=== PATIENT | female | born 1955 | race Caucasian/White ===

== ENCOUNTER 2020-05-22 12:22 | Emergency (ER) | payer MEDICARE, BC ==
[~2020-05-22] VITALS: Ht 162.6 cm; Wt 126.5 kg
[2020-05-22] MEDS ORDERED: normal saline 1000ML IV soln IVB ONE (13:10)
[2020-05-22] MEDS ORDERED: morphine 4 MG/ML inj SYRINge IV ONE (13:10)
[2020-05-22] MEDS ORDERED: ketorolac tromethamine 15mg/ml inj. IV ONE (13:10)
[2020-05-22] MEDS ORDERED: ondansetron/PF 4mg/2ml inj IV ONE (13:10)
[2020-05-22 13:30] LABS: BASOPHILS % (AUTO) 0.4 % (0-1); EOSINOPHILS % (AUTO) 0.4 % (0-6); HEMATOCRIT 42.6 % (35.0-45.0); LYMPHOCYTES % (AUTO) 12.4 % (21-51); MEAN CORPUSCULAR HEMOGLOBIN 31.8 PG (27.0-31.0); MEAN CORPUSCULAR HGB CONC 32.9 g/dL (33.0-36.5); MEAN CORPUSCULAR VOLUME 96.5 FL (78-98); MEAN PLATELET VOLUME 8.6 FL (7.4-10.4); MONOCYTES # (AUTO) 0.5 X10'3 (0-0.9); NEUTROPHILS # (AUTO) 6.8 X10'3 (1.8-7.7); NEUTROPHILS % (AUTO) 80.8 % (42-75); PLATELET COUNT 211 X10'3 (140-440); RED BLOOD COUNT 4.42 X10'6 (4.20-5.60); RED CELL DISTRIBUTION WIDTH 13.3 % (11.5-14.5); WHITE BLOOD COUNT 8.4 X10'3 (4.5-11.0)
[2020-05-22 13:44] LABS: ALANINE AMINOTRANSFERASE 19 U/L (12-78); ALBUMIN 3.4 G/DL (3.4-5.0); ALBUMIN/GLOBULIN RATIO 0.9 (1.1-1.5); ALKALINE PHOSPHATASE 134 IU/L (46-116); ANION GAP 8 (8-16); ASPARTATE AMINO TRANSFERASE 17 U/L (10-37); BILIRUBIN,TOTAL 0.5 MG/DL (0.1-1.0); BLOOD UREA NITROGEN 10 MG/DL (7-18); BUN/CREATININE RATIO 9.3 (6.6-38.0); CALCIUM 9.3 MG/DL (8.5-10.1); CHLORIDE 108 MMOL/L (99-107); CREATININE 1.07 MG/DL (0.40-0.90); GLUCOSE 119 MG/DL (70-104); LIPASE 106 U/L (73-393); POTASSIUM 4.2 MMOL/L (3.5-5.1); SODIUM 144 MMOL/L (135-145); TOTAL CARBON DIOXIDE 27.8 MMOL/L (24-32); TOTAL PROTEIN 7.2 G/DL (6.4-8.2); eGFR 51 ML/MIN
[2020-05-22 14:41] LABS: CLARITY,URINE CLOUDY (Clear); COLOR,URINE BROWN (Yellow); GLUCOSE, URINE NEGATIVE (Neg); KETONES,URINE NEGATIVE (Neg); LEUKOCYTE ESTERASE ,URINE NEGATIVE (Neg); NITRITES, URINE NEGATIVE (Neg); OCCULT BLOOD,URINE LARGE (Neg); PH,URINE 5.5 (4.8-8.0); PROTEIN,URINE 100 mg/dl (Neg); UROBILINOGEN,URINE 0.2 E.U/dL (0.2-1.0)
[2020-05-22 14:43] LABS: UA COLLECTION TYPE CLN CATCH MIDSTREAM
[2020-05-22 14:48] LABS: RBC,URINE TNTC /HPF (0-2)
[2020-05-22 14:49] LABS: BACTERIA,URINE 2+ /HPF (Neg); SQUAMOUS EPITHELIAL CELL,UR FEW /LPF (FEW)
[2020-05-22] MEDS ORDERED: HYDR-4353 PO (15:12)
[2020-05-22] MEDS ORDERED: ONDA4TAB6 PO (15:12)
[2020-05-22] MEDS ORDERED: ketorolac trometh. 30mg/ml inj. IM ONE (15:30)
[2020-05-22 15:36] VITALS: BP 179/87
== END 2020-05-22 15:35 | disposition home or self-care (01) ==
LOC: ER 12:23
DX: N20.0 Calculus of kidney (principal); R10.31 Right lower quadrant pain; R10.11 Right upper quadrant pain; R11.0 Nausea; J45.909 Unspecified asthma, uncomplicated; E11.9 Type 2 diabetes mellitus without complications; Z90.89 Acquired absence of other organs; Z88.2 Allergy status to sulfonamides; Z79.899 Other long term (current) drug therapy
CPT/HCPCS: 36415; 74176; 80053; 81001; 83690; 85025; 87088; 96361; 96372; 96374; 96375; 99284; J1885; J2270; J2405; J7030; 99285

== ENCOUNTER 2022-07-27 08:41 | Inpatient (IN) | payer MEDICARE, BC ==
[~2022-07-27] VITALS: Ht 162.6 cm; Wt 130.2 kg
[2022-07-27] VITALS (9 sets, daily range): BP systolic 115–172; BP diastolic 54–87
[~2022-07-27 08:41] MED LIST: ONDA4TAB6 PO
[2022-07-27 09:55] LABS: BASOPHILS % (AUTO) 0.1 % (0-1); EOSINOPHILS % (AUTO) 0.1 % (0-6); HEMOGLOBIN 13.9 g/dl (12.0-16.0); LYMPHOCYTES # (AUTO) 0.8 X10'3 (1.1-4.8); LYMPHOCYTES % (AUTO) 7.7 % (21-51); MEAN CORPUSCULAR HEMOGLOBIN 31.8 PG (27.0-31.0); MEAN CORPUSCULAR VOLUME 96.2 FL (78-98); MEAN PLATELET VOLUME 8.6 FL (7.4-10.4); MONOCYTES # (AUTO) 0.4 X10'3 (0-0.9); MONOCYTES % (AUTO) 4.1 % (2-12); NEUTROPHILS # (AUTO) 8.7 X10'3 (1.8-7.7); PLATELET COUNT 221 X10'3 (140-440); RED BLOOD COUNT 4.37 X10'6 (4.20-5.60); WHITE BLOOD COUNT 9.8 X10'3 (4.5-11.0)
[2022-07-27 10:00] LABS: CLARITY,URINE CLEAR (Clear); COLOR,URINE YELLOW (Yellow); GLUCOSE, URINE NEGATIVE (Neg); KETONES,URINE TRACE mg/dl (Neg); LEUKOCYTE ESTERASE ,URINE NEGATIVE (Neg); NITRITES, URINE NEGATIVE (Neg); OCCULT BLOOD,URINE SMALL (Neg); PROTEIN,URINE NEGATIVE (Neg); UROBILINOGEN,URINE 0.2 E.U/dL (0.2-1.0)
[2022-07-27 10:05] LABS: ALANINE AMINOTRANSFERASE 20 U/L (12-78); ALBUMIN 3.7 G/DL (3.4-5.0); ALKALINE PHOSPHATASE 142 IU/L (46-116); ASPARTATE AMINO TRANSFERASE 15 U/L (10-37); BILIRUBIN,TOTAL 0.3 MG/DL (0.1-1.0); BLOOD UREA NITROGEN 14 MG/DL (7-18); BUN/CREATININE RATIO 14.4 (6.6-38.0); CALCIUM 9.4 MG/DL (8.5-10.1); CHLORIDE 107 MMOL/L (99-107); CREATININE 0.97 MG/DL (0.40-0.90); GLUCOSE 165 MG/DL (70-104); LIPASE 89 U/L (73-393); POTASSIUM 3.6 MMOL/L (3.5-5.1); TOTAL CARBON DIOXIDE 27.9 MMOL/L (24-32); TOTAL PROTEIN 7.4 G/DL (6.4-8.2); eGFR 57 ML/MIN
[2022-07-27 10:07] LABS: UA COLLECTION TYPE CLN CATCH MIDSTREAM
[2022-07-27 10:13] LABS: BACTERIA,URINE 3+ /HPF (Neg); MUCUS STRANDS MODERATE /LPF (Neg); SQUAMOUS EPITHELIAL CELL,UR MODERATE /LPF (FEW)
[2022-07-27 10:29] LABS: ANION GAP 10 (8-16); SODIUM 145 MMOL/L (135-145)
[2022-07-27] MEDS ORDERED: HYDROcodone/acetaminophen 5mg/325mg tablet PO ONE (14:00)
[2022-07-27] MEDS ORDERED: HYDR-3965 PO ×2 (14:10)
[2022-07-27] MEDS ORDERED: CEPH500C81 PO ×2 (14:10)
[2022-07-27] MEDS ORDERED: cephalexin 250mg capsule PO ONE (14:10)
[2022-07-27] MEDS ORDERED: morphine 4 MG/ML inj SYRINge IV ONE (15:45)
[2022-07-27] MEDS ORDERED: CefTRIAXone/D5W-Rocephin 1gm 50 ML IV ONE (16:30)
[2022-07-27] MEDS: ringers solution, lacted 1,000 ML IV SCH (17:06)
[2022-07-27] MEDS ORDERED: HYDROcodone/acetaminophen 5mg/325mg tablet PO PRN (17:20)
[2022-07-27] MEDS ORDERED: glucagon, human recombinant 1mg kit SUBCUT PRN (17:20)
[2022-07-27] MEDS ORDERED: morphine 2 MG/ML inj. syringe IV PRN ×2 (17:20→21:25)
[2022-07-27] MEDS ORDERED: dextrose 50%-water 50ml dispensing syringe IV PRN ×2 (17:20)
[2022-07-27] MEDS ORDERED: insulin Lispro (HumaLOG) vial - multi-dose SQ SCH (17:20)
[2022-07-27] MEDS ORDERED: mag hydrox/Alum hydrox/simeth 30ml oral suspension PO PRN (17:20)
[2022-07-27] MEDS ORDERED: magnesium hydroxide 30ml (MOM) UD suspension PO PRN (17:20)
[2022-07-27] MEDS ORDERED: ondansetron/PF 4mg/2ml inj IV PRN ×2 (17:20→21:25)
[2022-07-27] MEDS ORDERED: acetaminophen 325mg tablet PO PRN ×2 (17:20)
[2022-07-27] MEDS ORDERED: metoclopramide 5 mg/ml inj IV PRN (17:20)
[2022-07-27] MEDS ORDERED: MESSAGE TO PHARMACY PO ONE (17:20)
[2022-07-27] MEDS ORDERED: DEXTROSE 15 GM of carb/4 tabs (each vial/BOTTLE has 4 tablets) PO PRN ×2 (17:20)
[2022-07-27] MEDS ORDERED: TOPI25TA49 PO (17:56)
[2022-07-27] MEDS ORDERED: LEVO137T24 PO (17:56)
[2022-07-27] MEDS ORDERED: ALBU17AE26 PO (17:56)
[2022-07-27] MEDS ORDERED: SEMA1PEN3 SQ (17:56)
[2022-07-27] MEDS ORDERED: ROSU5TAB12 PO (17:56)
[2022-07-27] MEDS ORDERED: FLUT16SP26 (17:56)
[2022-07-27] MEDS ORDERED: CHOL10005 PO (17:57)
[2022-07-27] MEDS ORDERED: MULT-1085 PO (17:57)
[2022-07-27 18:11] LABS: HEMOGLOBIN A1C 6.1 % (4.5-6.2)
[2022-07-27] MEDS: docusate sod 100mg capsule PO SCH (20:00)
[2022-07-27] MEDS: morphine 2 MG/ML inj. syringe IV PRN (20:11)
[2022-07-27] MEDS ORDERED: BUPIVAcaine/PF 2.5 mg/ml (0.25%) 30ml vial ONE (20:26)
[2022-07-27] MEDS ORDERED: INDOCYANINE GREEN 25 MG/10 ML VIAL IV ONE (20:26)
[2022-07-27] MEDS ORDERED: sevoflurane 250ml liquid IH ONE (20:44)
[2022-07-27] MEDS ORDERED: rocuronium 10mg/ml inj IV ONE ×2 (20:44→20:47)
[2022-07-27] MEDS ORDERED: fentaNYL /PF 50mcg/ml 5ml ampule ONE (20:47)
[2022-07-27] MEDS ORDERED: midazolam 1 mg/ML 2ml injection ONE (20:47)
[2022-07-27] MEDS ORDERED: propofol inj 20 ML IV ONE (20:47)
--- NOTE | 2022-07-27 20:52 | NUR ---
RECEIVED PATIENT AT 1945 FROM ER. PT TO OR FOR SURGERY AT 2029.
[2022-07-27] MEDS: insulin glargine (Lantus) pen - multi-dose SQ SCH (21:00)
[2022-07-27] MEDS ORDERED: labetalol 20mg/4ml (5mg/ml) syringe IV PRN (21:25)
[2022-07-27] MEDS ORDERED: morphine 4 MG/ML inj SYRINge IV PRN (21:25)
[2022-07-27] MEDS ORDERED: proCHLORperazine 10 MG/2 ml inj IV PRN (21:25)
[2022-07-27] MEDS ORDERED: ringers solution, lacted 1,000 ML IV SCH (21:25)
[2022-07-27] MEDS ORDERED: meperidine/PF 25mg/ml syringe IV PRN ×3 (21:25)
[2022-07-27] MEDS ORDERED: glycopyrrolate 0.2mg/ml inj ONE (22:54)
[2022-07-27] MEDS ORDERED: neostigmine methylsulfate 1 MG/ML 10ml vial ONE (22:54)
--- NOTE | 2022-07-27 23:02 | NUR ---
Received from OR via HOSPITAL BED , accompanied by Anesthesiologist DR GILLIS and report given by Anesthesiolgist. PT PRESENTS WITH 20G LEFT HAND, ABD DRESSING 1 ISLAND DRESSING ADILIA DRAIN WITH TERRA AND 3 BANDAIDS. VSS. Addendum: 07/27/22 at 2312 by Alissa Flores RN, RN Amended: Links added.
--- NOTE | 2022-07-27 23:32 | NUR ---
Report called to receiving nurse KAVITA BILLS. Transferred via HOSPITAL BED TO ROOM 4012B. BED IN LOW LOCKED POSITION, CALL LIGHT IN REACH, VIATLS MACHINE HOOKED UP TO PT WITH CONTINUOUS PULSE OX. Belongings WERE LEFT IN PT ROOM 4012B. Special Issues communicated to receiving nurse. Addendum: 07/27/22 at 2345 by Alissa Flores RN, RN Amended: Links added.
[2022-07-28] VITALS (12 sets, daily range): BP systolic 106–148; BP diastolic 44–67
[2022-07-28] MEDS: normal saline 1000ml 1,000 ML IV SCH ×4 (00:21→17:37)
[2022-07-28] MEDS: piperacillin/tazo 4.5gm/100ml 100 ML IV SCH ×3 (00:21→15:47)
[2022-07-28] MEDS: ringers solution, lacted 1,000 ML IV SCH ×3 (00:22→22:40)
[2022-07-28] MEDS: morphine 2 MG/ML inj. syringe IV PRN ×2 (06:00→15:31)
[2022-07-28 06:37] LABS: BASOPHILS % (AUTO) 0.1 % (0-1); EOSINOPHILS % (AUTO) 0 % (0-6); HEMATOCRIT 39.2 % (35.0-45.0); HEMOGLOBIN 13.1 g/dl (12.0-16.0); LYMPHOCYTES # (AUTO) 0.7 X10'3 (1.1-4.8); LYMPHOCYTES % (AUTO) 4.3 % (21-51); MEAN CORPUSCULAR HEMOGLOBIN 32.2 PG (27.0-31.0); MEAN CORPUSCULAR HGB CONC 33.5 g/dL (33.0-36.5); MEAN CORPUSCULAR VOLUME 96.3 FL (78-98); MONOCYTES # (AUTO) 1.2 X10'3 (0-0.9); MONOCYTES % (AUTO) 7.6 % (2-12); NEUTROPHILS # (AUTO) 14.5 X10'3 (1.8-7.7); PLATELET COUNT 187 X10'3 (140-440); RED BLOOD COUNT 4.07 X10'6 (4.20-5.60); RED CELL DISTRIBUTION WIDTH 13.5 % (11.5-14.5); WHITE BLOOD COUNT 16.5 X10'3 (4.5-11.0)
[2022-07-28 07:04] LABS: ANION GAP 9 (8-16); BLOOD UREA NITROGEN 9 MG/DL (7-18); BUN/CREATININE RATIO 10.7 (6.6-38.0); CHLORIDE 108 MMOL/L (99-107); CREATININE 0.84 MG/DL (0.40-0.90); GLUCOSE 136 MG/DL (70-104); POTASSIUM 3.9 MMOL/L (3.5-5.1); SODIUM 143 MMOL/L (135-145); TOTAL CARBON DIOXIDE 26.4 MMOL/L (24-32)
[2022-07-28 07:05] LABS: ALANINE AMINOTRANSFERASE 25 U/L (12-78); ALBUMIN 2.7 G/DL (3.4-5.0); ALBUMIN/GLOBULIN RATIO 0.8 (1.1-1.5); ALKALINE PHOSPHATASE 99 IU/L (46-116); ASPARTATE AMINO TRANSFERASE 36 U/L (10-37); BILIRUBIN,TOTAL 1.2 MG/DL (0.1-1.0); CALCIUM 8.6 MG/DL (8.5-10.1); TOTAL PROTEIN 5.9 G/DL (6.4-8.2); eGFR 67 ML/MIN
--- NOTE | 2022-07-28 07:19 | NUR ---
Patient in room ORTHO 4012. I have received report from Chacha BILLS and had the opportunity to ask questions and assume patient care.
[2022-07-28] MEDS ORDERED: albuterol 2.5 MG/3 ML nebule NEB PRN (07:55)
[2022-07-28] MEDS: topiramate 25mg tablet PO SCH ×2 (09:50→21:15)
[2022-07-28] MEDS: multivitamins, therapeutics tablet PO SCH (09:50)
[2022-07-28] MEDS: docusate sod 100mg capsule PO SCH ×2 (09:50→21:15)
[2022-07-28] MEDS: levoTHYROXINE 25mcg tablet PO SCH (09:50)
[2022-07-28] MEDS: levoTHYROXINE 112mcg tablet PO SCH (09:56)
--- NOTE | 2022-07-28 10:41 | NUR ---
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
--- NOTE | 2022-07-28 15:45 | NUR ---
medicated for pain 04/26 , sero sang drainage noticed around distal surgical site changed x2.
[2022-07-28] MEDS: HYDROcodone/acetaminophen 10/325mg tab PO PRN ×2 (17:37→21:37)
--- NOTE | 2022-07-28 18:14 | NUR ---
walked outside door x1 with one assist. very painful. medicated with [place]. Resting in bed at time of report
--- NOTE | 2022-07-28 18:16 | NUR ---
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
--- NOTE | 2022-07-28 18:24 | NUR ---
Patient in room RA 358. I have received report from Paulette BILLS and Angelia BILLS and had the opportunity to ask questions and assume patient care.
--- NOTE | 2022-07-28 18:25 | NUR ---
Patient in room RA 358. I have received report from Angelia BILLS and had the opportunity to ask questions and assume patient care.
--- NOTE | 2022-07-28 18:50 | NUR ---
Problems reprioritized. Patient report given, questions answered & plan of care reviewed with Marylu BILLS.
[2022-07-28] MEDS: insulin glargine (Lantus) pen - multi-dose SQ SCH (21:00)
[2022-07-28] MEDS: enoxaparin 40mg/0.4ml syringe SUBCUT SCH (21:23)
[2022-07-29] MEDS: piperacillin/tazo 4.5gm/100ml 100 ML IV SCH ×4 (00:32→23:01)
[2022-07-29] MEDS: HYDROcodone/acetaminophen 10/325mg tab PO PRN ×3 (03:06→20:03)
[2022-07-29] MEDS: normal saline 1000ml 1,000 ML IV SCH ×3 (03:06→23:00)
--- NOTE | 2022-07-29 06:32 | NUR ---
Problems reprioritized. Patient report given, questions answered & plan of care reviewed with Kelli BILLS.
[2022-07-29 06:36] LABS: BASOPHILS % (AUTO) 0.2 % (0-1); EOSINOPHILS # (AUTO) 0.1 X10'3 (0-0.9); EOSINOPHILS % (AUTO) 0.6 % (0-6); HEMATOCRIT 36.6 % (35.0-45.0); HEMOGLOBIN 12.3 g/dl (12.0-16.0); LYMPHOCYTES % (AUTO) 10.4 % (21-51); MEAN CORPUSCULAR HEMOGLOBIN 32.5 PG (27.0-31.0); MEAN CORPUSCULAR HGB CONC 33.6 g/dL (33.0-36.5); MEAN CORPUSCULAR VOLUME 96.7 FL (78-98); MEAN PLATELET VOLUME 8.6 FL (7.4-10.4); MONOCYTES # (AUTO) 0.8 X10'3 (0-0.9); MONOCYTES % (AUTO) 8.2 % (2-12); NEUTROPHILS # (AUTO) 8.1 X10'3 (1.8-7.7); NEUTROPHILS % (AUTO) 80.6 % (42-75); PLATELET COUNT 165 X10'3 (140-440); RED BLOOD COUNT 3.79 X10'6 (4.20-5.60); RED CELL DISTRIBUTION WIDTH 13.6 % (11.5-14.5)
--- NOTE | 2022-07-29 06:53 | NUR ---
Patient in room RA 358. I have received report from SANJU Salter and had the opportunity to ask questions and assume patient care.
[2022-07-29 07:04] LABS: ALANINE AMINOTRANSFERASE 22 U/L (12-78); ALBUMIN 2.4 G/DL (3.4-5.0); ALBUMIN/GLOBULIN RATIO 0.7 (1.1-1.5); ALKALINE PHOSPHATASE 82 IU/L (46-116); ANION GAP 6 (8-16); ASPARTATE AMINO TRANSFERASE 28 U/L (10-37); BILIRUBIN,TOTAL 1.2 MG/DL (0.1-1.0); BLOOD UREA NITROGEN 10 MG/DL (7-18); BUN/CREATININE RATIO 11.5 (6.6-38.0); CALCIUM 8.4 MG/DL (8.5-10.1); CHLORIDE 108 MMOL/L (99-107); CREATININE 0.87 MG/DL (0.40-0.90); GLUCOSE 127 MG/DL (70-104); POTASSIUM 3.3 MMOL/L (3.5-5.1); SODIUM 139 MMOL/L (135-145); TOTAL CARBON DIOXIDE 24.9 MMOL/L (24-32); TOTAL PROTEIN 5.7 G/DL (6.4-8.2); eGFR 65 ML/MIN
[2022-07-29 07:26] VITALS: BP 112/61
[2022-07-29] MEDS ORDERED: POTASSIUM BICARB 20meq eff tab 20 MEQ TABLET.EFF PO ONE (08:35)
[2022-07-29] MEDS: topiramate 25mg tablet PO SCH ×2 (08:40→20:03)
[2022-07-29] MEDS: docusate sod 100mg capsule PO SCH ×2 (08:40→20:03)
[2022-07-29] MEDS: atorvastatin 20mg tablet PO SCH (08:40)
[2022-07-29] MEDS: ringers solution, lacted 1,000 ML IV SCH ×2 (08:40→21:19)
[2022-07-29] MEDS: multivitamins, therapeutics tablet PO SCH (08:40)
[2022-07-29] MEDS: levoTHYROXINE 112mcg tablet PO SCH (08:55)
[2022-07-29] MEDS: levoTHYROXINE 25mcg tablet PO SCH (08:55)
[2022-07-29 11:00] VITALS: BP 134/62
--- NOTE | 2022-07-29 13:18 | NUR ---
Diabetes consult: Pt w/ hx of DM A1c 6.1 per EMR. Well controlled and appropriate. DM ed not indicated at this time. Addendum: 07/29/22 at [address] Amended: Links added.
[2022-07-29 14:46] LABS: HEMOGLOBIN A1C 5.8 % (4.5-6.2)
--- NOTE | 2022-07-29 18:18 | NUR ---
Problems reprioritized. Patient report given, questions answered & plan of care reviewed with SANJU Cordova.
[2022-07-29 19:42] VITALS: BP 115/70
[2022-07-29] MEDS: magnesium hydroxide 30ml (MOM) UD suspension PO SCH (20:03)
[2022-07-29] MEDS: enoxaparin 40mg/0.4ml syringe SUBCUT SCH (20:04)
[2022-07-29] MEDS: insulin glargine (Lantus) pen - multi-dose SQ SCH (21:00)
--- NOTE | 2022-07-29 21:31 | NUR ---
Patient in room RA 358. I have received report from SANJU Pereira and had the opportunity to ask questions and assume patient care.
--- NOTE | 2022-07-29 22:34 | NUR ---
cHARTING BY Paz flores REVIEWED BY michael Mireles rn
[2022-07-30] VITALS: BP 133/73
[2022-07-30] MEDS: ringers solution, lacted 1,000 ML IV SCH ×2 (04:40→14:40)
[2022-07-30] MEDS: normal saline 1000ml 1,000 ML IV SCH ×3 (05:33→19:48)
[2022-07-30] MEDS: HYDROcodone/acetaminophen 10/325mg tab PO PRN ×3 (05:43→22:22)
--- NOTE | 2022-07-30 06:10 | NUR ---
Problems reprioritized. Patient report given, questions answered & plan of care reviewed with SANJU Pereira.
[2022-07-30 06:23] LABS: BASOPHILS % (AUTO) 0.4 % (0-1); EOSINOPHILS # (AUTO) 0.3 X10'3 (0-0.9); EOSINOPHILS % (AUTO) 3.3 % (0-6); HEMATOCRIT 36.9 % (35.0-45.0); HEMOGLOBIN 12.4 g/dl (12.0-16.0); LYMPHOCYTES % (AUTO) 11.5 % (21-51); MEAN CORPUSCULAR HEMOGLOBIN 32.3 PG (27.0-31.0); MEAN CORPUSCULAR HGB CONC 33.5 g/dL (33.0-36.5); MEAN CORPUSCULAR VOLUME 96.4 FL (78-98); MEAN PLATELET VOLUME 8.6 FL (7.4-10.4); MONOCYTES # (AUTO) 0.7 X10'3 (0-0.9); MONOCYTES % (AUTO) 8.3 % (2-12); NEUTROPHILS # (AUTO) 6.8 X10'3 (1.8-7.7); NEUTROPHILS % (AUTO) 76.5 % (42-75); PLATELET COUNT 190 X10'3 (140-440); RED BLOOD COUNT 3.83 X10'6 (4.20-5.60); RED CELL DISTRIBUTION WIDTH 13.3 % (11.5-14.5); WHITE BLOOD COUNT 8.9 X10'3 (4.5-11.0)
--- NOTE | 2022-07-30 06:36 | NUR ---
Patient in room RA 358. I have received report from SANJU Orr and had the opportunity to ask questions and assume patient care.
[2022-07-30 06:46] LABS: ALBUMIN 2.2 G/DL (3.4-5.0); ANION GAP 5 (8-16); BILIRUBIN,TOTAL 0.8 MG/DL (0.1-1.0); BLOOD UREA NITROGEN 7 MG/DL (7-18); BUN/CREATININE RATIO 8.4 (6.6-38.0); CALCIUM 8.4 MG/DL (8.5-10.1); CHLORIDE 108 MMOL/L (99-107); CREATININE 0.83 MG/DL (0.40-0.90); GLUCOSE 104 MG/DL (70-104); POTASSIUM 3.3 MMOL/L (3.5-5.1); SODIUM 139 MMOL/L (135-145); TOTAL CARBON DIOXIDE 25.7 MMOL/L (24-32); TOTAL PROTEIN 5.7 G/DL (6.4-8.2); eGFR 68 ML/MIN
[2022-07-30 06:47] LABS: ALANINE AMINOTRANSFERASE 20 U/L (12-78); ALBUMIN/GLOBULIN RATIO 0.6 (1.1-1.5); ALKALINE PHOSPHATASE 84 IU/L (46-116); ASPARTATE AMINO TRANSFERASE 21 U/L (10-37)
[2022-07-30] MEDS: topiramate 25mg tablet PO SCH ×2 (08:10→19:48)
[2022-07-30] MEDS: docusate sod 100mg capsule PO SCH ×2 (08:10→19:48)
[2022-07-30] MEDS: multivitamins, therapeutics tablet PO SCH (08:10)
[2022-07-30] MEDS: atorvastatin 20mg tablet PO SCH (08:10)
[2022-07-30] MEDS: magnesium hydroxide 30ml (MOM) UD suspension PO SCH ×2 (08:11→19:48)
[2022-07-30] MEDS: piperacillin/tazo 4.5gm/100ml 100 ML IV SCH ×2 (08:11→15:13)
[2022-07-30] MEDS: levoTHYROXINE 112mcg tablet PO SCH (08:12)
[2022-07-30] MEDS: levoTHYROXINE 25mcg tablet PO SCH (08:13)
[2022-07-30 08:50] VITALS: BP 114/52
[2022-07-30 12:00] VITALS: BP 108/72
[2022-07-30] MEDS ORDERED: POTASSIUM BICARB 20meq eff tab 20 MEQ TABLET.EFF PO ONE (12:05)
[2022-07-30 14:53] VITALS: BP 140/64
[2022-07-30 18:00] VITALS: BP 151/86
--- NOTE | 2022-07-30 18:19 | NUR ---
Problems reprioritized. Patient report given, questions answered & plan of care reviewed with SANJU Parish.
--- NOTE | 2022-07-30 18:19 | NUR ---
Patient in room RA 358. I have received report from AMOS BILLS and had the opportunity to ask questions and assume patient care.
--- NOTE | 2022-07-30 18:52 | NUR ---
Problems reprioritized. Patient report given, questions answered & plan of care reviewed with SANJU ORELLANA.
[2022-07-30] MEDS: enoxaparin 40mg/0.4ml syringe SUBCUT SCH (19:49)
[2022-07-30] MEDS: insulin glargine (Lantus) pen - multi-dose SQ SCH (21:00)
[2022-07-31] VITALS: BP 112/70
[2022-07-31] MEDS: ringers solution, lacted 1,000 ML IV SCH ×2 (00:06→10:40)
[2022-07-31] MEDS: piperacillin/tazo 4.5gm/100ml 100 ML IV SCH (00:06)
[2022-07-31] MEDS: normal saline 1000ml 1,000 ML IV SCH (04:12)
--- NOTE | 2022-07-31 06:10 | NUR ---
Patient in room RA 358. I have received report from SANJU Parish and had the opportunity to ask questions and assume patient care.
--- NOTE | 2022-07-31 06:22 | NUR ---
Problems reprioritized. Patient report given, questions answered & plan of care reviewed with JULIA RN.
[2022-07-31 06:42] LABS: BASOPHILS % (AUTO) 0.5 % (0-1); EOSINOPHILS # (AUTO) 0.4 X10'3 (0-0.9); EOSINOPHILS % (AUTO) 4.1 % (0-6); HEMATOCRIT 40.6 % (35.0-45.0); HEMOGLOBIN 13.6 g/dl (12.0-16.0); LYMPHOCYTES # (AUTO) 1.2 X10'3 (1.1-4.8); LYMPHOCYTES % (AUTO) 13.8 % (21-51); MEAN CORPUSCULAR HEMOGLOBIN 32.5 PG (27.0-31.0); MEAN CORPUSCULAR HGB CONC 33.6 g/dL (33.0-36.5); MEAN CORPUSCULAR VOLUME 96.8 FL (78-98); MEAN PLATELET VOLUME 9.1 FL (7.4-10.4); MONOCYTES # (AUTO) 0.9 X10'3 (0-0.9); MONOCYTES % (AUTO) 10.1 % (2-12); NEUTROPHILS # (AUTO) 6.3 X10'3 (1.8-7.7); NEUTROPHILS % (AUTO) 71.5 % (42-75); PLATELET COUNT 250 X10'3 (140-440); RED BLOOD COUNT 4.19 X10'6 (4.20-5.60); RED CELL DISTRIBUTION WIDTH 13.2 % (11.5-14.5); WHITE BLOOD COUNT 8.9 X10'3 (4.5-11.0)
[2022-07-31 07:03] LABS: ALBUMIN 2.4 G/DL (3.4-5.0); ANION GAP 8 (8-16); BILIRUBIN,TOTAL 0.8 MG/DL (0.1-1.0); BLOOD UREA NITROGEN 5 MG/DL (7-18); BUN/CREATININE RATIO 5.5 (6.6-38.0); CALCIUM 8.8 MG/DL (8.5-10.1); CHLORIDE 107 MMOL/L (99-107); CREATININE 0.91 MG/DL (0.40-0.90); GLUCOSE 106 MG/DL (70-104); POTASSIUM 3.8 MMOL/L (3.5-5.1); SODIUM 140 MMOL/L (135-145); TOTAL CARBON DIOXIDE 24.6 MMOL/L (24-32); TOTAL PROTEIN 6.4 G/DL (6.4-8.2); eGFR 61 ML/MIN
[2022-07-31 07:04] LABS: ALANINE AMINOTRANSFERASE 22 U/L (12-78); ALBUMIN/GLOBULIN RATIO 0.6 (1.1-1.5); ALKALINE PHOSPHATASE 99 IU/L (46-116); ASPARTATE AMINO TRANSFERASE 23 U/L (10-37)
[2022-07-31] MEDS: magnesium hydroxide 30ml (MOM) UD suspension PO SCH (08:00)
[2022-07-31 09:04] VITALS: BP 128/62
[2022-07-31] MEDS ORDERED: HYDR-3965 PO (10:10)
[2022-07-31] MEDS: levoTHYROXINE 112mcg tablet PO SCH (11:01)
[2022-07-31] MEDS: topiramate 25mg tablet PO SCH (11:01)
[2022-07-31] MEDS: atorvastatin 20mg tablet PO SCH (11:01)
[2022-07-31] MEDS: levoTHYROXINE 25mcg tablet PO SCH (11:01)
[2022-07-31] MEDS: multivitamins, therapeutics tablet PO SCH (11:01)
[2022-07-31] MEDS: docusate sod 100mg capsule PO SCH (11:01)
[2022-07-31 12:40] VITALS: BP 120/47
--- NOTE | 2022-07-31 14:50 | NUR ---
DC inst provided to pt. IV DC'd, tip intact. All belongings sent w/pt. WC to cab.
[2022-07-31] MEDS ORDERED: piperacillin/tazo 3.375gm/50ml 50 ML IV SCH (16:00)
== END 2022-07-31 14:59 | disposition home or self-care (01) | DRG 418 ==
LOC: ER 08:41 → ED HOLD 17:23 → ORTHO 4S 19:50 → SUR 3N 07-28 12:10
PROVIDERS: ADMIT Internal Medicine; ATTEND Internal Medicine
PROC: 0DNW4ZZ Release Peritoneum, Percutaneous Endoscopic Approach (ICD-10-PCS; 2022-07-27)
PROC: 8E0W4CZ Robotic Assisted Procedure of Trunk Region, Percutaneous Endoscopic Approach (ICD-10-PCS; 2022-07-27)
PROC: BW211ZZ Computerized Tomography (CT Scan) of Abdomen and Pelvis using Low Osmolar Contrast (ICD-10-PCS; 2022-07-27)
PROC: 0FT44ZZ Resection of Gallbladder, Percutaneous Endoscopic Approach (ICD-10-PCS; principal; 2022-07-27 20:44)
DX: K80.00 Calculus of gallbladder with acute cholecystitis without obstruction (principal); Z68.42 Body mass index [BMI] 45.0-49.9, adult; E03.9 Hypothyroidism, unspecified; Z20.822 Contact with and (suspected) exposure to COVID-19; E11.9 Type 2 diabetes mellitus without complications; E66.01 Morbid (severe) obesity due to excess calories; E78.5 Hyperlipidemia, unspecified; G47.30 Sleep apnea, unspecified; J45.909 Unspecified asthma, uncomplicated; K42.9 Umbilical hernia without obstruction or gangrene; K66.0 Peritoneal adhesions (postprocedural) (postinfection); K76.0 Fatty (change of) liver, not elsewhere classified; K82.8 Other specified diseases of gallbladder; Z79.899 Other long term (current) drug therapy; Z83.3 Family history of diabetes mellitus; Z88.2 Allergy status to sulfonamides
CPT/HCPCS: 36415; 74176; 76700; 80053; 81001; 82948; 83036; 83690; 85025; 87081; 87088; 87811; 88304; 93005; 99285; A4215; A4615; A4618; A6213; A6402; A6449; A7000; G0378; J0696; J1650; J1815; J2250; J2270; J2543; J2704; J2710; J3010; J3490; J7030; J7120

== ENCOUNTER 2024-10-04 22:39 | Observation (INO) | payer MEDICARE, BC ==
[~2024-10-04] VITALS: Ht 162.6 cm; Wt 113.8 kg
[~2024-10-04 22:39] MED LIST changes: +ALBU17AE26 PO; +CEPH-585 PO; +CHOL10005 PO; +FLUT16SP26; +LEVO137T24 PO; +MULT-1085 PO; -ONDA4TAB6 PO; +ROSU5TAB51 PO; +SEMA1PEN3 SQ; +TOPI25TA49 PO
[2024-10-05 01:07] LABS: BASOPHILS % (AUTO) 0.5 % (0-1); EOSINOPHILS # (AUTO) 0.1 X10'3 (0-0.9); EOSINOPHILS % (AUTO) 1.6 % (0-6); HEMATOCRIT 40.2 % (35.0-45.0); HEMOGLOBIN 13.7 g/dl (12.0-16.0); LYMPHOCYTES # (AUTO) 1.2 X10'3 (1.1-4.8); LYMPHOCYTES % (AUTO) 22.3 % (21-51); MEAN CORPUSCULAR HEMOGLOBIN 32.9 PG (27.0-31.0); MEAN CORPUSCULAR VOLUME 96.6 FL (78-98); MEAN PLATELET VOLUME 8.4 FL (7.4-10.4); MONOCYTES # (AUTO) 0.4 X10'3 (0-0.9); MONOCYTES % (AUTO) 8.2 % (2-12); NEUTROPHILS # (AUTO) 3.6 X10'3 (1.8-7.7); NEUTROPHILS % (AUTO) 67.4 % (42-75); PLATELET COUNT 252 X10'3 (140-440); RED BLOOD COUNT 4.16 X10'6 (4.20-5.60); RED CELL DISTRIBUTION WIDTH 13.5 % (11.5-14.5); WHITE BLOOD COUNT 5.4 X10'3 (4.5-11.0)
[2024-10-05 01:15] LABS: PROTHROMBIN TIME 10.9 SECONDS (9.0-12.0)
[2024-10-05 01:18] LABS: ALBUMIN 3.4 G/DL (3.4-5.0); ANION GAP 11 (8-16); BLOOD UREA NITROGEN 11 MG/DL (7-18); CALCIUM 9.4 MG/DL (8.5-10.1); CHLORIDE 109 MMOL/L (99-107); GLUCOSE 145 MG/DL (70-104); POTASSIUM 3.8 MMOL/L (3.5-5.1); SODIUM 146 MMOL/L (135-145); TOTAL CARBON DIOXIDE 26.5 MMOL/L (24-32); eCRCL 45 ML/MIN; eGFR 55 ML/MIN
[2024-10-05] MEDS ORDERED: potassium Cl 40MEQ/1/2NS 520ml 520 ML IV PRN (01:55)
[2024-10-05] MEDS ORDERED: magnesium hydroxide 30ml (MOM) UD suspension PO PRN (01:55)
[2024-10-05] MEDS ORDERED: acetaminophen 325mg tablet PO PRN (01:55)
[2024-10-05] MEDS ORDERED: potassium Cl 20 mEq SR tablet PO PRN ×2 (01:55)
[2024-10-05] MEDS ORDERED: mag hydrox/Alum hydrox/simeth 30ml oral suspension PO PRN (01:55)
[2024-10-05] MEDS ORDERED: magnesium sulf-water 2g/50mL 50 ML IV PRN (01:55)
[2024-10-05] MEDS ORDERED: magnesium sulf-water 4G/100mL 100 ML IV PRN (01:55)
[2024-10-05] MEDS ORDERED: ondansetron/PF 4mg/2ml inj IV PRN (01:55)
[2024-10-05] MEDS ORDERED: magnesium Cl slow-release 64mg tablet PO PRN (01:55)
[2024-10-05] MEDS ORDERED: iohexol 350MG/ML 100ml bottle IV ONE (02:11)
[2024-10-05] MEDS ORDERED: LEVO112T5 PO (02:18)
[2024-10-05 02:37] LABS: HEMOGLOBIN A1C 5.5 % (4.5-6.2)
[2024-10-05 02:38] LABS: APTT 26 SECONDS (22-32)
[2024-10-05 02:41] LABS: MAGNESIUM 2.2 MG/DL (1.5-2.4); PRO BRAIN NATRIURETIC PEPTIDE 137 PG/ML (0-125)
[2024-10-05 03:20] LABS: BILIRUBIN,URINE NEGATIVE (Neg); CLARITY,URINE CLEAR (Clear); COLOR,URINE YELLOW (Yellow); GLUCOSE, URINE NEGATIVE (Neg); KETONES,URINE NEGATIVE (Neg); LEUKOCYTE ESTERASE ,URINE SMALL (Neg); NITRITES, URINE NEGATIVE (Neg); OCCULT BLOOD,URINE NEGATIVE (Neg); PROTEIN,URINE NEGATIVE (Neg); UROBILINOGEN,URINE 0.2 E.U/dL (0.2-1.0)
[2024-10-05 03:37] LABS: UA COLLECTION TYPE CLN CATCH MIDSTREAM
[2024-10-05 03:42] LABS: BACTERIA,URINE FEW /HPF (Neg); RBC,URINE NONE SEEN /HPF (0-2); SQUAMOUS EPITHELIAL CELL,UR FEW /LPF (FEW)
[2024-10-05 07:00] VITALS: BP 115/46; PULSE 62; RESP 16; TEMP 98.6; O2SAT 99
[2024-10-05] MEDS ORDERED: albuterol 2.5 MG/3 ML nebule NEB PRN (07:15)
[2024-10-05 08:00] VITALS: RESP 14; O2SAT 98
[2024-10-05] MEDS: K and/or MAG REPLACEMENT MC SCH (08:00)
[2024-10-05] MEDS: aspirin 81mg, enteric-coated 1 TAB TABLET.DR PO SCH (08:23)
[2024-10-05] MEDS: docusate sod 100mg capsule PO SCH (08:23)
[2024-10-05] MEDS: enoxaparin 40mg/0.4ml syringe SUBCUT SCH (08:23)
[2024-10-05] MEDS: atorvastatin 20mg tablet PO SCH (08:23)
[2024-10-05] MEDS: topiramate 25mg tablet PO SCH (08:24)
[2024-10-05 10:00] VITALS: BP 129/66; PULSE 79; RESP 18; TEMP 97.6; O2SAT 98
[2024-10-08] MEDS ORDERED: SEMAGLUTIDE 1 MG SQ SCH (08:00)
== END 2024-10-05 14:20 | disposition home or self-care (01) ==
LOC: ER 22:42 → INTOOBSV 10-05 01:59 → ED HOLD 10-05 01:59 → ORTHO 4S 10-05 06:45
PROVIDERS: ADMIT Internal Medicine Critical Care Medicine; ATTEND Family Medicine
DX: R20.2 Paresthesia of skin (principal); E11.9 Type 2 diabetes mellitus without complications; J45.909 Unspecified asthma, uncomplicated; Z88.2 Allergy status to sulfonamides; Z88.8 Allergy status to other drugs, medicaments and biological substances; Z88.5 Allergy status to narcotic agent; Z86.2 Personal history of diseases of the blood and blood-forming organs and certain disorders involving the immune mechanism; Z79.899 Other long term (current) drug therapy
CPT/HCPCS: 70450; 70496; 70498; 70551; 72125; 80048; 81001; 83036; 83735; 83880; 84132; 85610; 85730; 96372; 99285; G0378; 36415; 71045; 85025; 87081; 87088; J1650; Q9967

== ENCOUNTER 2024-12-07 23:40 | Emergency (ER) | payer MEDICARE, BC ==
[~2024-12-07] VITALS: Ht 162.6 cm; Wt 96.6 kg
[~2024-12-07 23:40] MED LIST changes: -CEPH-585 PO; +LEVO112T5 PO; -LEVO137T24 PO; -ROSU5TAB51 PO
[2024-12-07 23:48] VITALS: TEMP 96.6
[2024-12-08] MEDS: acetaminophen 325mg tablet PO ONE (02:03)
[2024-12-08] MEDS: ibuprofen tablet 400 MG TABLET PO ONE (02:03)
[2024-12-08] MEDS: ondansetron 4mg rapidly disintigrating tab PO ONE (02:03)
[2024-12-08 03:54] VITALS: BP 148/98; PULSE 87; RESP 17; O2SAT 100
== END 2024-12-08 03:56 | disposition home or self-care (01) ==
LOC: ER 23:41
DX: G43.909 Migraine, unspecified, not intractable, without status migrainosus (principal); J45.909 Unspecified asthma, uncomplicated; E11.9 Type 2 diabetes mellitus without complications; Z88.2 Allergy status to sulfonamides; Z90.89 Acquired absence of other organs; Z79.899 Other long term (current) drug therapy; Z98.890 Other specified postprocedural states
CPT/HCPCS: 36415; 84484; 93005; 99284